=== PATIENT | female | born 1980 | race Two or more races ===

== ENCOUNTER 2018-05-01 17:13 | Outpatient (CLI) | payer OTHER ==
[2018-05-03 06:10] LABS: HEP A AB IGM Negative (Negative); HEP B CORE IGM Negative (Negative); HEP B SURFACE AG QL Negative (Negative); HEP C ANTIBODY <0.1 s/co ratio (0.0-0.9)
== END 2018-05-01 17:31 | disposition home or self-care (01) ==
LOC: LAB 17:13
PROVIDERS: ATTEND Surgery Plastic and Reconstructive Surgery
DX: Z11.3 Encounter for screening for infections with a predominantly sexual mode of transmission (principal)
CPT/HCPCS: 36415-UA; 80074-90; 86592-TC; 86703-TC